=== PATIENT | female | born 1950 | race Caucasian/White ===

== ENCOUNTER 2016-05-17 08:53 | Emergency (ER) | payer OTHER ==
[~2016-05-17] VITALS: Ht 162.6 cm; Wt 81.6 kg
[~2016-05-17 08:53] MED LIST: ALBUTEROL 3 ML3 ML INH; ALBUTEROL0.09 MG/A1 INH; ALBUTEROL2.5 MG/3 M INH/SOL; ALENDRONATE SOD70 M2 PO; BENZONATATE200 M1 PO; DULERA 200 MCG/13 GM INH; MONTELUKAST SOD10 M1 PO; PREDNISONE10 M2 PO; PREDNISONE10 MG PO; SYMBICORT 16010.2 GM INH; ZITHROMAX250 M2 PO
[2016-05-17 08:58] VITALS: BP 176/100
--- NOTE | 2016-05-17 09:20 | ED UPPER/LOWER EXTREMITY COMPL ---
History of Present Illness General Chief Complaint: Lower Extremity Problems Stated Complaint: RT FOOT SWELLING Source: patient Exam Limitations: no limitations Vital Signs & Intake/Output Vital Signs & Intake/Output Vital Signs Date Time Temp Pulse Resp B/P Pulse O2 O2 Flow FiO2 Ox Delivery Rate 05/17 0858 97.6 76 16 176/100 99 Room Air Allergies Coded Allergies: NO KNOWN ALLERGIES (03/28/11) Reconcile Medications Alendronate Sodium 70 MG TABLET 1 TAB PO QWED Snapd App (Reported) in the morning, at least 30 minutes before the first food, beverage, or medication of the day Budesonide/Formoterol Fumarate (Symbicort 160-4.5 Mcg Inhaler) 160 MCG-4.5 MCG/ ACTUATION HFA.AER.AD 2 PUF INH BID ASTHMA (Reported) Cephalexin (Keflex) 500 MG CAPSULE 1 CAP PO TID cellulitis Mometasone/Formoterol (Dulera 200 Mcg/5 Mcg Inhaler) 200 MCG-5 MCG/ACTUATION HFA.AER.AD 2 PUF INH BID ASTHMA (Reported) Tramadol HCl 50 MG TABLET 1 TAB PO BIDP PRN pain Triage Note: 65 Y/O FEMALE C/O REDNESS AND SWELLING TO R FOOT, ONSET 3-4 DAYS AGO. DENIES INJURIES OR TRAUMA TO FOOT. REDNESS NOTED AT BASE OF TOES. SWELLING NOTED. PT HAS BEEN TAKING IBUPROPHEN WITH NO RELIEF, LAST DOSE 600MG 0300 Triage Nurses Notes Reviewed? yes Onset: Gradual Duration: day(s): (3) Timing: remote history Severity: moderate Severity Numbers: 7 Pain/Injury Location: Right: Foot. Method of Injury: unknown Modifying Factors: Improves With: immobilization. Worsens With: movement. Associated Symptoms: swelling, redness HPI: Patient is a 65-year-old female presenting to the emergency department with chief complaint of right foot pain, swelling and redness has been going on for the past 3-4 days. History of similar symptoms several years ago she saw a sign hanger who diagnosed her with a callus on the bone. Patient denies any trauma. No numbness or tingling. Pain is achy and throbbing. Denies taking anything at home to help with pain. Denies any nausea or vomiting fevers or chills. No chest pain or shortness of breath. No history of diabetes. (PATYSENDY ZAVALETA) Past History Travel History Traveled to [place] past 21 day No Medical History Any Pertinent Medical History? 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 No (SENDY CORREIA) Review of Systems Review of Systems Constitutional: Reports: no symptoms. Comments Review of systems: See HPI, All other systems negative. Constitutional, no chills fever or weight loss HEENT: No visual changes no sore throat no congestion Cardiovascular: No chest pain ,palpitation Skin, no jaundice Respiratory: No dyspnea cough sputum or hemoptysis GI: No nausea no vomiting Muscle skeletal: no back pain, no neck pain, Neurologic: No numbness no confusion Psych: No stress anxiety Immunology: No splenectomy or history of AIDS (SENDY CORREIA) Physical Exam Physical Exam General Appearance: well developed/nourished, no apparent distress, alert, awake , comfortable Comments: Well-developed well-nourished person in no acute distress HEENT: Pupils equally round and reactive to light and accommodation. Nose is atraumatic. Neck: Normal inspection Cardiovascular: Regular rate and rhythms no murmurs rubs or gallops, normal JVP Respiratory: Chest nontender. No respiratory distress.breath sounds clear to auscultation bilaterally Extremity: Moderate edema noted over the dorsum of the right foot, 1+ pitting. Positive warmth to palpation over this area. Nontender to palpation over the right ankle or right calf. Pedal pulses are 2+ bilaterally. Full range of motion of the right foot without difficulty. Neuro: Alert oriented x3, motor sensory normal Skin: Moderate erythema and warmth noted of the dorsum of the right foot. Mild surrounding edema. There is a callus formation noted between the fourth and fifth toes on the right foot. Psych: Mood and affect is normal, memory and judgment is normal. (SENDY CORREIA) Progress Differential Diagnosis: cellulitis, contusion, dislocation, fracture, gout, septic arthritis, sprain, tendon injury Plan of Care: Current Medications Sig/Smooth Start time Last Medication Dose Stop Time Status Admin Ibuprofen 600 MG ONCE ONE 05/17 1030 UNVr (Motrin) 05/17 1031 Diagnostic Imaging: Viewed by Me: Radiology Read. Discussed w/RAD: Radiology Read. Radiology Impression: PATIENT: RAS POLLARD PRESENT AGE: 65 PATIENT ACCOUNT NO: [id number] : 50 LOCATION: [facility] ORDERING PHYSICIAN: SENDY SIN SERVICE DATE: 05/17/16 EXAM TYPE: RAD - XRY-FOOT COMPLETE, R EXAMINATION: XR FOOT, RIGHT CLINICAL INFORMATION: Cellulitis, evaluate for osteomyelitis. COMPARISON: None. TECHNIQUE : AP, lateral, and oblique views of the right foot FINDINGS: Bone mineral density is maintained without evidence of fracture or dislocation. No focal osseous lesions are seen. There is no evidence of cortical destruction to suggest osteomyelitis. Joint space is maintained without productive or erosive changes. There is moderate circumferential soft tissue prominence most notably in the mid and hindfoot region. IMPRESSION: No radiographic evidence of osteomyelitis. Diagnosis is not excluded on this examination. MR imaging or 3 phase bone scan could be performed to further evaluate if indicated clinically. Comments: Patient given dose of ibuprofen for pain prior to discharge. Likely cellulitis. Vision is afebrile. No history of diabetes. She'll be started on oral antibiotics, she'll follow up with podiatry. Spoke with regarding patient care and he agrees with plan. (PATY SIN,SENDY) Departure Departure Time of Disposition: 1017 Disposition: HOME OR SELF CARE Condition: Stable Clinical Impression Primary Impression: Cellulitis Qualifiers: Site of cellulitis: extremity Site of cellulitis of extremity: lower extremity Laterality: right Qualified Code: L03.115 - Cellulitis of right lower limb Referrals: NUSRAT MOODY,ACOSTA Paul (PCP/Family) WILLI BAE DPM Referred to [facility] as new patient No Additional Instructions: Follow-up with Dr. Bae, podiatry call to make an appointment. Elevate her leg as much as possible. Take anti-inflammatories as prescribed. For severe pain take tramadol. Departure Forms: Customer Survey General Discharge Information Prescriptions: Current Visit Scripts Cephalexin (Keflex) 1 CAP PO TID #30 CAP Tramadol HCl 1 TAB PO BIDP PRN pain #10 TAB (SENDY CORREIA) PA/SENIOR ENGINEERING TECH Co-Sign Statement Statement: ED Attending supervision documentation- x I saw and evaluated the patient. I have also reviewed all the pertinent lab results and diagnostic results. I agree with the findings and the plan of care as documented in the PA's/SENIOR ENGINEERING TECH's documentation. [] I have reviewed the ED Record and agree with the PA's/SENIOR ENGINEERING TECH's documentation. [] Additions or exceptions (if any) to the PAs/SENIOR ENGINEERING TECH's note and plan are summarized below: [] (DELONTE MOODY,RAZ) Procedures Splinting Location: right foot Manual Alignment Performed: No Pre-Made Type: eli wrap Splint Applied By: splint applied by other (nursing) Pre-Proc Neuro Vasc Exam: normal Post-Proc Neuro Vasc Exam: normal Progress: Tolerated procedure well. (SENDY CORREIA)
[2016-05-17] MEDS ORDERED: KEFLEX500 M1 PO ×2 (09:50→10:19)
[2016-05-17] MEDS ORDERED: TRAMADOL HCL50 M1 PO ×2 (09:50→10:19)
--- NOTE | 2016-05-17 10:15 | RADIOLOGY REPORT ---
EXAMINATION: XR FOOT, RIGHT CLINICAL INFORMATION: Cellulitis, evaluate for osteomyelitis. COMPARISON: None. TECHNIQUE: AP, lateral, and oblique views of the right foot FINDINGS: Bone mineral density is maintained without evidence of fracture or dislocation. No focal osseous lesions are seen. There is no evidence of cortical destruction to suggest osteomyelitis. Joint space is maintained without productive or erosive changes. There is moderate circumferential soft tissue prominence most notably in the mid and hindfoot region. IMPRESSION: No radiographic evidence of osteomyelitis. Diagnosis is not excluded on this examination. MR imaging or 3 phase bone scan could be performed to further evaluate if indicated clinically.
== END 2016-05-17 10:29 ==
LOC: ERH 08:53
DX: L03.115 Cellulitis of right lower limb (principal)
CPT/HCPCS: 73630-RT

== ENCOUNTER 2017-08-23 06:17 | Emergency (ER) | payer OTHER ==
[~2017-08-23] VITALS: Ht 162.6 cm; Wt 79.4 kg
[~2017-08-23 06:17] MED LIST changes: +KEFLEX500 M1 PO; +TRAMADOL HCL50 M1 PO
--- NOTE | 2017-08-23 06:37 | ED GI/GU/ABDOMINAL COMPLAINT ---
History of Present Illness General Chief Complaint: Abdominal Pain/Flank Pain Stated Complaint: " MY WHOLE RT SIDE HURTS X'S 3 DAYS" DENIES N/V/D Source: patient Exam Limitations: no limitations Vital Signs & Intake/Output Vital Signs & Intake/Output Vital Signs Date Time Temp Pulse Resp B/P B/P Pulse O2 O2 Flow FiO2 Mean Ox Delivery Rate 08/23 1118 96.6 84 20 131/60 93 Room Air 08/23 0753 97.9 68 18 142/68 98 Room Air 08/23 0730 96 Room Air 08/23 0633 162/82 08/23 0629 98.0 82 18 165/101 95 Room Air Allergies Coded Allergies: NO KNOWN ALLERGIES (03/28/11) Triage Note: PT FROM HOME C/O RIGHT FLANK PAIN 12/22 PER PT. PT STATES THAT 2X DAYS AGO PTS RIGHT FLANK PAIN BEGAN, PT DENIES TRAUMA OR INJURY. PT STATES ACHY PAIN THAT HURTS WHEN PT "BREATHES IN". PT DENIES CP, SOB, ARM NUMBNESS/TINGLING, JAW OR BACK PAIN. PTS BP ELEVATED 165/101. PT IS AMBULATORY WITH STEADY GAIT Triage Nurses Notes Reviewed? yes ? n Is pt currently ? No Onset: Gradual Duration: day(s): Timing: recent history Location: right lower quadrant, right upper quadrant Radiation: no radiation Activities at Onset: none Prior Abdominal Problems: similar symptoms Modifying Factors: Worsens With: palpation. Associated Symptoms: abdominal pain HPI: 66 yo woman in prior good health presents with right sided abdominal pain x 3 days without nausea, vomiting, diarrhea, dysuria, back pain. She does not associate her pain with eating. She notes her abdomen is painful when she presses her abdomen. She is otherwise well. (Verito MOODY,Ashok Ortiz) Reconcile Medications Alendronate Sodium 70 MG TABLET 1 TAB PO QWED BONE HEALTH (Reported) in the morning, at least 30 minutes before the first food, beverage, or medication of the day Beclomethasone Dipropionate (QVAR) 80 MCG AER.W.ADAP 2 PUF INH BID BREATHING PROBLEMS (Reported) Fluticasone/Vilanterol (Breo Ellipta 200-25 Mcg INH) 200 MCG-25 MCG/DOSE BLST.W.DEV 1 PUFF PO DAILY BREATHING PROBLEMS (Reported) Montelukast Sodium 10 MG TABLET 1 TAB PO DAILY ALLERGIES (Reported) (Sherry MOODY,Main Flores) Past History Travel History Traveled to [place] past 21 day No Medical History Any Pertinent Medical History? 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 No (Veirto MOODY,Ashok Ortiz) Review of Systems Review of Systems Constitutional: Reports: no symptoms. EENTM: Reports: no symptoms. Respiratory: Reports: no symptoms. Cardiovascular: Reports: no symptoms. GI: Reports: no symptoms. Genitourinary: Reports: no symptoms. Musculoskeletal: Reports: no symptoms. Skin: Reports: no symptoms. Neurological/Psychological: Reports: no symptoms. Hematologic/Endocrine: Reports: no symptoms. Immunologic/Allergic: Reports: no symptoms. All Other Systems: Reviewed and Negative (Ashok Sellers MD) Physical Exam Physical Exam General Appearance: well developed/nourished, mild distress, moderate distress Head: atraumatic, normal appearance Eyes: Bilateral: normal appearance. Ears, Nose, Throat, Mouth: hearing grossly normal, moist mucous membrane Neck: normal inspection, supple, full range of motion Respiratory: normal breath sounds, chest non-tender, no respiratory distress, quiet respiration, lungs clear Cardiovascular: regular rate/rhythm Gastrointestinal: tender to palpation in ruq w/ peralta's sign, also tender in rlq. with mild rebound. negative rosving's sign, +bowel sounds Back: normal inspection Extremities: normal range of motion Neurologic/Psych: no motor/sensory deficits, awake, alert, oriented x 3 Skin: intact, normal color, warm/dry Core Measures ACS in differential dx? No Sepsis Present: No Sepsis Focused Exam Completed? No (Ashok Sellers MD) Progress Differential Diagnosis: appendicitis, biliary colic, bowel obstruction, cholecystitis, diverticulitis, gastritis, hepatitis Plan of Care: Orders Procedure Date/time Status URINALYSIS 08/23 0646 Active PARTIAL THROMBOPLASTIN TIME 08/23 0644 Complete LACTIC ACID 08/23 0644 Complete TROPONIN LEVEL 04/11 0637 Complete LIPASE 08/23 636 Complete HEPATIC FUNCTION PANEL 08/23 636 Complete CBC WITHOUT DIFFERENTIAL 08/23 636 Complete BASIC METABOLIC PANEL 08/23 636 Complete AMYLASE 08/23 636 Complete EKG 08/23 636 Active Laboratory Tests 08/23/17 0944: Lactic Acid Cancelled 08/23/17 0740: Lactic Acid 1.0 08/23/17 0740: Anion Gap 9, Estimated GFR > 60, BUN/Creatinine Ratio 26.0 H, Glucose 96, Calcium 8.8, Total Bilirubin 0.9, Direct Bilirubin 0.4, AST 19, ALT 31, Alkaline Phosphatase 68, Troponin I < 0.01, Total Protein 7.0, Albumin 4.0, Amylase 44, Lipase 112, APTT 29 08/23/17 0645: CBC w Diff NO MAN DIFF REQ, RBC 6.78 H, MCV 62.9 L, MCH 19.4 L, MCHC 30.8 L, RDW 17.1 H, MPV 8.6, Gran % 72.4, Lymphocytes % 18.0 L, Monocytes % 9.2, Eosinophils % 0.4, Basophils % 0, Absolute Granulocytes 8.3 H, Absolute Lymphocytes 2.1, Absolute Monocytes 1.1 H, Absolute Eosinophils 0, Absolute Basophils 0 Diagnostic Imaging: Viewed by Me: Radiology Read. Discussed w/RAD: Radiology Read, CT Scan. Initial ED EKG: nsr, flipped t v3, v4, other non specific changes. Hand-Off Endorsed To: Sherry MOODY,Main Flores Endorsed Time: 0700 Pending: CT, labs, Xray (Verito MOODY,Ashok Ortiz) Radiology Impression: PATIENT: CHANTEL POLLARD PRESENT AGE: 66 PATIENT ACCOUNT NO: [id number] : 50 LOCATION: [facility] ORDERING PHYSICIAN: Ashok Sellers MD SERVICE DATE: 08/23/17 EXAM TYPE: CAT - CT ABD & PELVIS W IV CONTRAST EXAMINATION: CT ABDOMEN AND PELVIS WITH CONTRAST CLINICAL INFORMATION: Right upper quadrant and right lower quadrant abdominal pain x3 days. Question appendicitis versus cholecystitis. COMPARISON: No relevant prior imaging. TECHNIQUE: Multidetector volumetric imaging was performed of the abdomen and pelvis following IV administration of 95 mL of Optiray 320 intravenous contrast. Sagittal and coronal reformatted images were obtained on the technologist's workstation. DLP: 462.14 mGy-cm FINDINGS: LUNG BASES: There is bibasilar subsegmental atelectasis. No pleural or pericardial effusion. LIVER, GALLBLADDER, AND BILIARY TREE: Liver attenuation is homogeneous and there is no evidence of a discrete hepatic parenchymal mass. No abnormal intrahepatic or extrahepatic biliary ductal dilatation. The gallbladder is physiologically distended. No radiopaque gallstones and no overt pericholecystic inflammation or collection to suggest acute cholecystitis. PANCREAS: Unremarkable. SPLEEN: Unremarkable. ADRENAL GLANDS: Unremarkable. KIDNEYS AND URETERS: Kidneys demonstrate symmetric nephrographic enhancement. There are a few well marginated benign-appearing cystic lesions within the right kidney. No abnormal perinephric inflammation or collection. No hydronephrosis. No worrisome mass or calcification is visualized along the expected course of the right or left ureter. BLADDER: Unremarkable. GASTROINTESTINAL TRACT: There are innumerable diverticula primarily involving the transverse colon, descending colon, and sigmoid. No evidence of acute diverticulitis. The appendix is normal. No free intraperitoneal air or fluid. There is a relatively large duodenal diverticulum containing layering air and fluid that measures 4.5 cm in diameter. Stomach and small bowel is otherwise normal. No evidence of obstruction. ABDOMINAL WALL: No significant hernia is appreciated. LYMPH NODES: No pathologically enlarged mesenteric or retroperitoneal lymph nodes. VASCULAR: Partially calcified atheromatous plaque is visualized within the abdominal aorta and iliac vessels. The inferior vena cava is unremarkable. PELVIC VISCERA: The uterus is absent indicating a history of a hysterectomy. Postsurgical changes of a vaginal cuff colpopexy are also noted. No worrisome adnexal mass. OSSEOUS STRUCTURES: No acute osseous finding. IMPRESSION: No abnormal finding to provide an explanation for this patient's right sided abdominal pain. No evidence of acute diverticulitis and no acute appendicitis. Grossly no evidence of acute cholecystitis however CT may underestimate the degree of gallbladder inflammation. If there is a clinical concern for cholecystitis then a dedicated right upper quadrant ultrasound can be obtained for better anatomic characterization of the hepatobiliary system. DICTATED BY: Juan MOODY,Maikel Carreon DATE/TIME DICTATED:08/23/17899 LEARNING ANALYST:JARVIS DATE/TIME TRANSCRIBED:08/23/17899 CONFIDENTIAL, DO NOT COPY WITHOUT APPROPRIATE AUTHORIZATION. <Electronically signed in Other Vendor System> SIGNED BY: Maikel Martinez MD 08/23/17 0914, PATIENT: CHANTEL POLLARD PRESENT AGE: 66 PATIENT ACCOUNT NO: [id number] : 50 LOCATION: [facility] ORDERING PHYSICIAN: Main Powell MD SERVICE DATE: 08/23/17 EXAM TYPE: US - US-LIMITED ABDOMEN EXAMINATION: US ABDOMEN LIMITED CLINICAL INFORMATION: Right-sided abdominal pain and tenderness.. COMPARISON: CT scan of the abdomen and pelvis 08/23/2017. TECHNIQUE: Real-time imaging of the right upper quadrant abdominal viscera. FINDINGS: PANCREAS: Normal. LIVER: There is diffusely increased hepatic parenchymal echogenicity consistent with hepatic steatosis. No discrete hepatic parenchymal mass. No intrahepatic biliary duct dilatation. GALLBLADDER: Normal. The gallbladder is physiologically distended without evidence of stones, sludge, polyps, wall thickening or pericholecystic fluid. COMMON BILE DUCT: Normal in caliber measuring 0.6 cm in diameter. RIGHT KIDNEY: There is a well marginated benign-appearing cystic lesion at the upper pole of the right kidney that measures 3.3 cm in maximal diameter. A second cystic lesion in the interpolar region measures 3.4 cm in diameter. Otherwise the right kidney is unremarkable and there is no evidence of hydronephrosis or nephrolithiasis. FREE FLUID: None. IMPRESSION: There is diffusely increased echogenicity throughout the hepatic parenchyma indicating likelihood of underlying hepatic steatosis. Otherwise unremarkable examination. No evidence of acute cholecystitis. DICTATED BY: Maikel Martinez MD DATE/TIME DICTATED:08/23 LEARNING ANALYST:JARVIS DATE/TIME TRANSCRIBED:08/23/171056 CONFIDENTIAL, DO NOT COPY WITHOUT APPROPRIATE AUTHORIZATION. <Electronically signed in Other Vendor System> SIGNED BY: Maikel Martinez MD 08/23/17 1106 CXR Impression: PATIENT: CHANTEL POLLARD PRESENT AGE : 66 PATIENT ACCOUNT NO: [id number] : 50 LOCATION: [facility] ORDERING PHYSICIAN: Ashok Sellers MD SERVICE DATE: 08/23/17 EXAM TYPE: RAD - XRY-PORTABLE CHEST XRAY EXAMINATION: XR PORTABLE CHEST CLINICAL INFORMATION: Abdominal pain COMPARISON: Chest x-ray 04/07/2016 TECHNIQUE: Portable frontal view of the chest was obtained. FINDINGS: Lung volumes are decreased from the prior study. Diffuse coarse interstitial opacity is present. Bibasilar atelectasis. New blunting of left costophrenic angle. Cardiac silhouette is enlarged. No acute osseous abnormality. IMPRESSION: Low lung volumes with bibasilar atelectasis. There is diffuse coarse interstitial opacity and interval enlargement of the cardiac silhouette. This could represent mild interstitial pulmonary edema, bronchitis, or interstitial pneumonitis. No dense focal consolidation. New blunting of left costophrenic angle could represent a pleural effusion or atelectasis. DICTATED BY: Bj Penny MD DATE/TIME DICTATED:08/23/17708 LEARNING ANALYST:JARVIS DATE/TIME TRANSCRIBED:708 CONFIDENTIAL, DO NOT COPY WITHOUT APPROPRIATE AUTHORIZATION. < Electronically signed in Other Vendor System> SIGNED BY: Bj Penny MD 08/23/17 0715 Comments: 08/23/2017 7:33:15 AM patient signed out to me by Dr. Sellers at shift car changer. 08/23/2017 10:46 AM I updated Chantel on test results. Although her pain improved slightly she was still experiencing right upper quadrant abdominal pain. Additional morphine ordered. Ultrasound ordered. 08/23/2017 12:04:02 PM Chantel is still experiencing pain although it is greatly improved. She is tender over the right upper quadrant. Surgery paged. 08/23/2017 12:27:35 PM patient's case discussed with Rafael Delcid MD who agrees that the patient should be reevaluated within 24 hours and provided pain control the meantime. (Sherry MOODY,Main Flores) Departure Departure Disposition: HOME OR SELF CARE Condition: Stable Clinical Impression Primary Impression: Abdominal pain Referrals: Yonathan MOODY,Jeff Paul (PCP/Family) Departure Forms: Customer Survey General Discharge Information (Verito MOODY,Ashok Ortiz) Departure Additional Instructions: Vicodin as needed for pain. Low-fat diet. Follow-up with your primary care physician or return to the emergency department within 24 hours for reevaluation of your abdominal pain. Return immediately if any sudden worsening or other concerns. Please note that there might be incidental findings in your evaluation that are unrelated to the current emergency department visit. Please notify your primary care doctor about this emergency department visit in order to obtain and review all of the testing performed so that these incidental findings can be monitored as needed. If you had an x-ray performed, please understand that some fractures may not be seen on the initial set of x-rays. If your symptoms persist you might need a repeat set of x-rays to check for such a fracture. If you had a laceration evaluated, please understand that foreign bodies such as glass or wood may not be visible to the naked eye or on plain x-rays. If the wound becomes red, swollen, increasingly more painful or if there is any drainage from the wound, please have it reevaluated by a physician for the possibility of a retained foreign body. If you're unable to follow up as outlined in the discharge instructions please return to the emergency department. Thank you for choosing the [facility] Emergency Department for your care. It was a pleasure to serve you today. Main Powell M.D. [facility] Prescriptions: Current Visit Scripts Hydrocodone/Acetaminophen ([place] 5-325 Tablet) 1-2 TAB PO Q6 #10 TAB (Main Powell MD) Critical Care Note Critical Care Note Critical Care Time: 30-74 min (Main Powell MD)
[2017-08-23 06:52] LABS: ABSOLUTE BASOPHIL COUNT 0 /CUMM (0.0-0.2); ABSOLUTE EOSINOPHIL COUNT 0 /CUMM (0.0-0.7); ABSOLUTE GRANULOCYTE CT 8.3 /CUMM (1.4-6.5); ABSOLUTE LYMPH COUNT 2.1 /CUMM (1.2-3.4); ABSOLUTE MONOCYTE COUNT 1.1 /CUMM (0.10-0.60); BASOPHIL % 0 % (0.0-2.0); EOSINOPHIL % 0.4 % (0-5); GRANULOCYTE % 72.4 % (42.2-75.2); HEMATOCRIT 42.6 % (37-47); MEAN CORPUSCULAR HGB 19.4 PG (27.0-31.0); MEAN CORPUSCULAR HGB CONC 30.8 G/DL (33.0-37.0); MEAN CORPUSCULAR VOLUME 62.9 FL (81.0-99.0); MEAN PLATELET VOLUME 8.6 FL (7.4-10.4); PLATELET COUNT 306 /CUMM (130-400); RBC DISTRIBUTION WIDTH 17.1 % (11.5-14.5); WHITE BLOOD CELL COUNT 11.5 /CUMM (4.8-10.8)
[2017-08-23 07:00] LABS: RED BLOOD CELL CT 6.78 /CUMM (4.20-5.40)
--- NOTE | 2017-08-23 07:15 | RADIOLOGY REPORT ---
EXAMINATION: XR PORTABLE CHEST CLINICAL INFORMATION: Abdominal pain COMPARISON: Chest x-ray 04/07/2016 TECHNIQUE: Portable frontal view of the chest was obtained. FINDINGS: Lung volumes are decreased from the prior study. Diffuse coarse interstitial opacity is present. Bibasilar atelectasis. New blunting of left costophrenic angle. Cardiac silhouette is enlarged. No acute osseous abnormality. IMPRESSION: Low lung volumes with bibasilar atelectasis. There is diffuse coarse interstitial opacity and interval enlargement of the cardiac silhouette. This could represent mild interstitial pulmonary edema, bronchitis, or interstitial pneumonitis. No dense focal consolidation. New blunting of left costophrenic angle could represent a pleural effusion or atelectasis.
[2017-08-23] MEDS ORDERED: QVAR8.7 G1 INH (08:01)
[2017-08-23] MEDS ORDERED: BREO ELLIPTA 21 EACH PO (08:02)
[2017-08-23] MEDS ORDERED: MONTELUKAST SOD10 M1 PO (08:02)
[2017-08-23 08:22] LABS: PTT 29 SEC (25-37)
--- NOTE | 2017-08-23 09:14 | CT SCAN REPORT ---
EXAMINATION: CT ABDOMEN AND PELVIS WITH CONTRAST CLINICAL INFORMATION: Right upper quadrant and right lower quadrant abdominal pain x3 days. Question appendicitis versus cholecystitis. COMPARISON: No relevant prior imaging. TECHNIQUE: Multidetector volumetric imaging was performed of the abdomen and pelvis following IV administration of 95 mL of Optiray 320 intravenous contrast. Sagittal and coronal reformatted images were obtained on the technologist's workstation. DLP: 462.14 mGy-cm FINDINGS: LUNG BASES: There is bibasilar subsegmental atelectasis. No pleural or pericardial effusion. LIVER, GALLBLADDER, AND BILIARY TREE: Liver attenuation is homogeneous and there is no evidence of a discrete hepatic parenchymal mass. No abnormal intrahepatic or extrahepatic biliary ductal dilatation. The gallbladder is physiologically distended. No radiopaque gallstones and no overt pericholecystic inflammation or collection to suggest acute cholecystitis. PANCREAS: Unremarkable. SPLEEN: Unremarkable. ADRENAL GLANDS: Unremarkable. KIDNEYS AND URETERS: Kidneys demonstrate symmetric nephrographic enhancement. There are a few well marginated benign-appearing cystic lesions within the right kidney. No abnormal perinephric inflammation or collection. No hydronephrosis. No worrisome mass or calcification is visualized along the expected course of the right or left ureter. BLADDER: Unremarkable. GASTROINTESTINAL TRACT: There are innumerable diverticula primarily involving the transverse colon, descending colon, and sigmoid. No evidence of acute diverticulitis. The appendix is normal. No free intraperitoneal air or fluid. There is a relatively large duodenal diverticulum containing layering air and fluid that measures 4.5 cm in diameter. Stomach and small bowel is otherwise normal. No evidence of obstruction. ABDOMINAL WALL: No significant hernia is appreciated. LYMPH NODES: No pathologically enlarged mesenteric or retroperitoneal lymph nodes. VASCULAR: Partially calcified atheromatous plaque is visualized within the abdominal aorta and iliac vessels. The inferior vena cava is unremarkable. PELVIC VISCERA: The uterus is absent indicating a history of a hysterectomy. Postsurgical changes of a vaginal cuff colpopexy are also noted. No worrisome adnexal mass. OSSEOUS STRUCTURES: No acute osseous finding. IMPRESSION: No abnormal finding to provide an explanation for this patient's right sided abdominal pain. No evidence of acute diverticulitis and no acute appendicitis. Grossly no evidence of acute cholecystitis however CT may underestimate the degree of gallbladder inflammation. If there is a clinical concern for cholecystitis then a dedicated right upper quadrant ultrasound can be obtained for better anatomic characterization of the hepatobiliary system.
--- NOTE | 2017-08-23 11:06 | ULTRASOUND REPORT ---
EXAMINATION: US ABDOMEN LIMITED CLINICAL INFORMATION: Right-sided abdominal pain and tenderness.. COMPARISON: CT scan of the abdomen and pelvis 08/23/2017. TECHNIQUE: Real-time imaging of the right upper quadrant abdominal viscera. FINDINGS: PANCREAS: Normal. LIVER: There is diffusely increased hepatic parenchymal echogenicity consistent with hepatic steatosis. No discrete hepatic parenchymal mass. No intrahepatic biliary duct dilatation. GALLBLADDER: Normal. The gallbladder is physiologically distended without evidence of stones, sludge, polyps, wall thickening or pericholecystic fluid. COMMON BILE DUCT: Normal in caliber measuring 0.6 cm in diameter. RIGHT KIDNEY: There is a well marginated benign-appearing cystic lesion at the upper pole of the right kidney that measures 3.3 cm in maximal diameter. A second cystic lesion in the interpolar region measures 3.4 cm in diameter. Otherwise the right kidney is unremarkable and there is no evidence of hydronephrosis or nephrolithiasis. FREE FLUID: None. IMPRESSION: There is diffusely increased echogenicity throughout the hepatic parenchyma indicating likelihood of underlying hepatic steatosis. Otherwise unremarkable examination. No evidence of acute cholecystitis.
[2017-08-23] MEDS ORDERED: NORCO 5-325 TA1 EACH PO (12:46)
[2017-08-23 13:04] VITALS: BP 136/73
== END 2017-08-23 13:05 ==
LOC: ERH 06:17
PROVIDERS: Pediatrics
DX: R10.31 Right lower quadrant pain (principal); R10.11 Right upper quadrant pain
CPT/HCPCS: 71045; 74177; 93005; 93010; 96374; 96376; Q9965